=== PATIENT | female | born 2000 | race Two or more races ===

== ENCOUNTER 2023-09-09 12:10 | Emergency (ER) | payer OTHER ==
[~2023-09-09] VITALS: Ht 175.3 cm; Wt 102.1 kg
[2023-09-09] MEDS ORDERED: TESTOSTERO200 MG/1 M IM (13:39)
[2023-09-09] MEDS ORDERED: VENLAFAXINE HCL75 M1 PO (13:39)
[2023-09-09] MEDS ORDERED: PALIPERIDONE ER3 MG PO (13:39)
[2023-09-09] MEDS ORDERED: METOPROLOL SUCC50 MG PO (13:39)
[2023-09-09 15:53] LABS: HEMATOCRIT 44.9 % (36.0-45.00); HEMOGLOBIN 17.4 g/dL (12.0-15.00); MEAN CELL VOLUME 94.1 fL (80.00-100.00); MEAN CORPUSCULAR HEMOGLOBIN 36.5 pg (27.00-32.0); MEAN CORPUSCULAR HGB CONC 38.8 g/dl (32.0-36.0); PLATELET COUNT 249 K/uL (150-450); RED BLOOD COUNT 4.77 M/uL (4.00-6.00); RED CELL DISTRIBUTION WIDTH 13.1 % (11.5-14.5)
== END 2023-09-09 17:45 | disposition home or self-care (01) ==
LOC: ER 12:11
PROVIDERS: General Practice
DX: J45.901 Unspecified asthma with (acute) exacerbation (principal); I11.9 Hypertensive heart disease without heart failure; F32.89 Other specified depressive episodes; Z20.822 Contact with and (suspected) exposure to COVID-19